=== PATIENT | male | born 1950 | race Caucasian/White ===

== ENCOUNTER 2025-04-08 12:58 | Day surgery (SDC) | payer MEDICARE, OTHER, SELFPAY ==
[2025-04-08] VITALS (8 sets, daily range): BP systolic 104–133; BP diastolic 50–80; PULSE 62–76; RESP 16; TEMP 36.2–36.7; O2SAT 92–98; BMI 24.2
--- NOTE | 2025-04-08 13:17 | PCM.PRE.AN2 ---
ASA Classification* ASA Classification ASA Classification: 2 Assessment & Plan Anesthesia* Anesthesia Assessment Anesthesia Assessment: Discussed sedation and/or anesthesia options, risks, benefits, and alternatives with patient/parents/legal guardian/POA. Questions invited. The patient/parents/legal guardian/POA seems to understand and agrees to proceed with anesthesia plan. Reviewed the physical assessment, medical history, allergy history and patient home medications list prior to surgery/procedure/anesthetic and documented any changes. Performed airway and anesthesia risk assessments. 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 When Was Last Pacemaker Check QUESTION #4 FULL TEXT: You/Your Family Experience fever (hyperthermia) with Anesthesia Last Oral Intake Last Oral intake: Last Oral Intake NPO since Meds taken in AM with sips of water? Meds patient instructed to take am of surgery PONV PONV - electronic publications specialist: PONV - electronic publications specialist Female No 04/04/25 10:15 HX of Motion Sickness No 04/04/25 10:15 HX of N/V After Surgery No 04/04/25 10:15 Non-Smoker Yes 04/04/25 10:15 Duration of Surgery greater No 04/04/25 10:15 than 60 minutes Number of Risk Factors 1 04/04/25 10:15 PONV Score Low Risk 04/04/25 10:15 Respiratory Assessment Respiratory Assessment - electronic publications specialist: Respiratory Tract Infection Hx - electronic publications specialist Hx Respiratory Tract Infection No 04/04/25 10:15 STOP Sleep Apnea STOP Sleep Apnea - electronic publications specialist: STOP Sleep Apnea - electronic publications specialist Hx Hypertension Yes: ON MED 04/04/25 10:15 Hx Sleep Apnea No 04/04/25 10:15 CPAP BIPAP Do you snore loudly (louder No 04/04/25 10:15 than talking or can be heard Do you often feel tired/ No 04/04/25 10:15 fatigued/ sleepy during daytime? Has anyone observed you stop No 04/04/25 10:15 breathing during sleep? STOP Results Negative 04/04/25 10:15 QUESTION #5 FULL TEXT : Do you snore loudly (louder than talking or can be heard through closed doors)? 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 Specify any problems Hx of Preganancy in last 3 N/A 04/04/25 10:15 Months Nurse Filling Out Transfusion JZOLLMARILIA 04/04/25 10:15 & Questions: Date: 04/04/25 04/04/25 10:15 Time: 10:17 04/04/25 10:15 Patient unable to answer at this time (ie. confused, unrespo /Reproduction History /Reproductive History - electronic publications specialist: /Reproductive Hx- electronic publications specialist Hx Now No 04/04/25 10:15 Gestational Age (in weeks): EDC: Hx Hx Para Hx Section SAB No 04/04/25 10:15 PFS Medical History Wears hearing aid Wears glasses Arthritis Prostate disease High cholesterol Former smoker History of stress test Home Medications ?Medication ?Instructions ?Recorded ?Last Taken ?Type amlodipine 5 mg-benazepril 20 mg 1 cap PO QDAY 01/21/25 Unknown History capsule aspirin 81 mg tablet,delayed 81 mg PO QDAY 01/21/25 Unknown History release chlorthalidone 25 mg tablet 25 mg PO QDAY 01/21/25 Unknown History potassium citrate 15 mEq (1,620 15 meq PO BID 01/21/25 Unknown History mg) tablet,extended release rosuvastatin 20 mg tablet 20 mg PO QDAY 01/21/25 Unknown History fluticasone propionate 50 1 spray intranasal DAILY PRN 04/04/25 Unknown History mcg/actuation nasal allergy symptoms spray,suspension (24 Hour Allergy Relief) meloxicam 7.5 mg tablet 7.5 mg PO .QD 04/04/25 Unknown History omega 1-jwx-orb-fish oil 1,200 mg 1 cap PO .QD 04/04/25 Unknown History (144 mg-216 mg) capsule (Fish Oil) Allergy/AdvReac Type Severity Reaction Status Date / Time No Known Allergies Allergy Verified 04/04/25 10:03 Family History Father Myocardial infarction Mother Colon cancer Grandfather Hypertension Surgical History H/O vasectomy H/O lithotripsy H/O Spinal surgery Social History Smoking Status: Never smoker alcohol intake: current frequency: 3-4 times per week Review of Systems (Anesthesia) ROS Narrative System reviewed and no additional complaints, except as documented.
[2025-04-08] MEDS: Lactated Ringers 1,000 ML 15 ML IV (13:38)
--- NOTE | 2025-04-08 13:55 | COLBX_PTH ---
PATIENT: JIAN LIU Jr. LOC: EN U#:[id number] AGE/SX: 74/M ROOM: RE04/08/[address]: Dr. Maximo Fam DO : 1950 BED: DIS: 04/08/2025 SPEC #: [id number] RECD: 04/08/25 18:24 STATUS: GLO REMY #: [id number] RACHEL: 04/08/25 13:[address]: Maximo Fam DEPT: SURGICAL PATHOLOGY RECD BY: Miah Hernandez ENTERED: 04/09/25 08:50 SP TYPE: COLON BX OTHR DR: GRACIELA Hutchins Tissues: A - Rectum, NOS Procedures: Surgery Specimen Level IV HEADER OPERATION: Colonoscopy with polypectomy PRE-OP DIAGNOSIS: Screening colonoscopy TISSUE SUBMITTED: A- Rectal polyp MICROSCOPIC DIAGNOSIS A. Rectum, polyp, biopsy: * Tubular adenoma MICROSCOPIC DESCRIPTION Slides are reviewed. GROSS DESCRIPTION A. Received in formalin labeled with the patient's name and date of . Designated as rectal polyp is a 0.4 cm hicks tissue fragment. Entirely submitted [address] [facility] 04/09/2025 CPT:52182
--- NOTE | 2025-04-08 15:16 | PCM.HP.STD ---
HPI - General General Date of Admission: 04/08/25 Date of Service: 04/08/25 Chief Complaint: Screening colonoscopy HPI Narrative JIAN LIU, is a 74 M who presents to the office today for establishment with [facility] [place] for colon cancer screening closer to home. He reports that his mother and maternal aunt from complications of colon cancer. He reports that his son has been diagnosed with Crohn's disease, but no other autoimmune diseases are in his direct family. He has undergone colon cancer screening colonoscopies every three years with the last on performed in February of 2022. He reports tolerating anesthesia well. Has a history of laminectomy with spinal fusions at several lumbar levels and has has had lithotripsy. He reports that the daily aspirin 81mg he takes is of his own volition. He denies any known medication allergies and food sensitivities. He reports daily BM with complete evacuation. He denies difficulty chewing and swallowing, cough, throat clearing, nausea, vomiting, heartburn, reflux, abdominal bloating, cramping, diarrhea, constipation, hematochezia, and melena. [facility] Medical History Wears hearing aid Wears glasses Arthritis Prostate disease High cholesterol Former smoker History of stress test Home Medications ?Medication ?Instructions ?Recorded ?Last Taken ?Type amlodipine 5 mg-benazepril 20 mg 1 cap PO QDAY 01/21/25 04/08/25 08:30 History capsule aspirin 81 mg tablet,delayed 81 mg PO QDAY 01/21/25 04/01/25 History release chlorthalidone 25 mg tablet 25 mg PO QDAY 01/21/25 04/08/25 08:30 History potassium citrate 15 mEq (1,620 15 meq PO BID 01/21/25 04/08/25 08:30 History mg) tablet,extended release rosuvastatin 20 mg tablet 20 mg PO QDAY 01/21/25 04/08/25 08:30 History fluticasone propionate 50 1 spray intranasal DAILY PRN 04/04/25 Unknown History mcg/actuation nasal allergy symptoms spray,suspension (24 Hour Allergy Relief) meloxicam 7.5 mg tablet 7.5 mg PO .QD 04/04/25 Unknown History omega 1-vtr-xeh-fish oil 1,200 mg 1 cap PO .QD 04/04/25 04/01/25 History (144 mg-216 mg) capsule (Fish Oil) Allergy/AdvReac Type Severity Reaction Status Date / Time No Known Allergies Allergy Verified 04/08/25 13:33 Family History Father Myocardial infarction Mother Colon cancer Grandfather Hypertension Surgical History H/O vasectomy H/O lithotripsy H/O Spinal surgery Social History Smoking Status: Never smoker alcohol intake: current frequency: 3-4 times per week ROS Constitutional Constitutional: Denies fatigue, fever(s), poor appetite, weight gain or weight loss Gastrointestinal Gastrointestinal: Denies belching, bloating, change in bowel habits, change in stool character, chewing difficulty, coffee ground emesis, constipation, cramping, diarrhea, dyspepsia, dysphagia, early satiety, excessive flatus, fecal incontinence, heartburn, hematemesis, hematochezia, hemorrhoids, loose stools, melena, nausea, odynophagia, rectal bleeding, tenesmus, vomiting or weight changes Vital Signs Vital Signs Vital Signs: 04/08/25 13:35 04/08/25 13:35 Temperature 98.0 F Temperature Source Temporal Pulse Rate 76 Respiratory Rate 16 Respiratory Pattern Normal Blood Pressure 133/74 H Blood Pressure Mean 93 Blood Pressure Source Monitor Blood Pressure Position Sitting Blood Pressure Location Right Arm Pulse Ox 98 Oxygen Delivery Method Room Air Weight Weight: 159 lb 6.307 oz Body Mass Index (BMI) 24.2 Physical Exam Const alert, oriented x3, no apparent distress and healthy appearing General Appearance: cooperative GI normal to inspection, nondistended, normoactive bowel sounds, soft to palpation, non-tender and non-distended Percussion: normal to percussion Rectal Exam: deferred Assessment & Plan Assessment/Plan (1) Encounter for screening colonoscopy: PLAN: Assessment and Plan Assessment and Plan (1) Encounter for screening colonoscopy: Status: Acute Plan ANN MARIE LIU, is a 74 M who presents to the office today for establishment with [facility] [place] for colon cancer screening closer to home. Discussed care plan with him. Reviewed his family and medical history. 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
--- NOTE | 2025-04-08 15:58 | OP.COLON_ITS ---
Patient Name: Jai Velazco Procedure Date: 04/08/2025 3:20 PM Date of : 1950 Age: 74 Procedure: Colonoscopy Indications: Screening for colorectal malignant neoplasm Providers: Maximo Fam DO Referring MD: Pola Hutchins Medicines: Monitored Anesthesia Care Patient Profile: This is a 74 year old male. Refer to note in patient chart for documentation of history and physical. Last Colonoscopy: 5 years ago. Complications: No immediate complications. Procedure: Pre-Anesthesia Assessment: - Prior to the procedure, a History and Physical was performed, and patient medications and allergies were reviewed. The patient is competent. The risks and benefits of the procedure and the sedation options and risks were discussed with the patient. All questions were answered and informed consent was obtained. Patient identification and proposed procedure were verified by the physician in the pre-procedure area. Mental Status Examination: alert and oriented. Airway Examination: normal oropharyngeal airway and neck mobility. Respiratory Examination: clear to auscultation. CV Examination: normal. Prophylactic Antibiotics: The patient does not require prophylactic antibiotics. Prior Anticoagulants: The patient has taken no anticoagulant or antiplatelet agents. ASA Grade Assessment: II - A patient with mild systemic disease. After reviewing the risks and benefits, the patient was deemed in satisfactory condition to undergo the procedure. The anesthesia plan was to use monitored anesthesia care (MAC). Immediately prior to administration of medications, the patient was re-assessed for adequacy to receive sedatives. The heart rate, respiratory rate, oxygen saturations, blood pressure, adequacy of pulmonary ventilation, and response to care were monitored throughout the procedure. The physical status of the patient was re-assessed after the procedure. After I obtained informed consent, the scope was passed under direct vision. Throughout the procedure, the patient's blood pressure, pulse, and oxygen saturations were monitored continuously. The Colonoscope was introduced through the anus and advanced to the cecum, identified by the appendiceal orifice, IC valve and transillumination. The colonoscopy was performed without difficulty. The patient tolerated the procedure well. The quality of the bowel preparation was adequate. The ileocecal valve, appendiceal orifice, and rectum were photographed. Scope In: 3:42:35 PM Scope Withdrawal Time 0 hours 7 minutes 35 seconds Scope Out: 3:51:25 PM Total Procedure Duration Time 0 hours 8 minutes 50 seconds Findings: The perianal and digital rectal examinations were normal. Multiple small and large-mouthed diverticula were found in the entire colon. An 8 mm polyp was found in the rectum. The polyp was sessile. The polyp was removed with a jumbo cold forceps. Resection and retrieval were complete. Verification of patient identification for the specimen was done. Estimated blood loss was minimal. The exam was otherwise without abnormality on direct and retroflexion views. Impression: - Diverticulosis in the entire examined colon. - One 8 mm polyp in the rectum, removed with a jumbo cold forceps. Resected and retrieved. - The examination was otherwise normal on direct and retroflexion views. Recommendation: - Discharge patient to home. - Resume previous diet. - Continue present medications. - Await pathology results. - Repeat colonoscopy in 5 years for surveillance. Procedure Code(s): --- Professional --- 19716, Colonoscopy, flexible; with biopsy, single or multiple CPT copyright 2021 [employer]. All rights reserved. The codes documented in this report are preliminary and upon finisher denture review may be revised to meet current compliance requirements. Maximo Fam DO 04/08/2025 3:58:32 PM This report has been signed electronically. Number of Addenda: 0 Note Initiated On: 04/08/2025 3:20 PM
--- NOTE | 2025-04-08 15:59 | OP.CCLET_ITS ---
04/08/2025 Pola Hutchins Re : Colonoscopy procedure for Jai Velazco Dear Viki This procedure was performed on Tuesday, April 08, 2025. My impressions and recommendations are as follows: Impressions : - Diverticulosis in the entire examined colon. - One 8 mm polyp in the rectum, removed with a jumbo cold forceps. Resected and retrieved. - The examination was otherwise normal on direct and retroflexion views. Recommendations : - Discharge patient to home. - Resume previous diet. - Continue present medications. - Await pathology results. - Repeat colonoscopy in 5 years for surveillance. My findings are described in the full procedure note, which is enclosed. If I can be of further assistance, please feel free to contact me at . Sincerely, Maximo Friend, 04/08/2025 3:58:32 PM This report has been signed electronically.
--- NOTE | 2025-04-08 16:15 | PCM.POST.ANE ---
Anesthesia: Postop Eval I Current Vital Signs Temperature: 97.7 F Pulse Rate: 66 Blood Pressure: 122/50 Respiratory Rate: 16 Pulse Ox: 95 Assessment Airway patent: Yes Spontaneous unlabored respirations: Yes Mental status: Awake nausea: No Vomiting: No Anesthesia Complication: No Fluid Hydration Crystalloid volume administer (ml): 50 Total IV fluid infused: 50 Progress Note Anesthesia document: Postop Eval 1 completed: Yes
--- NOTE | 2025-04-08 16:19 | PCM.POSTANE2 ---
Anesthesia Postop Eval I Sum Postop Eval Completion status Anesthesia document: Postop Eval 1 completed: Yes Anesthesia Postop Eval I Summary Anesthesia Postop Eval I Summary: Anesthesia Postop Eval I: Assessment Summary Airway patent Yes 04/08/25 16:19 Spontaneous unlabored Yes 04/08/25 16:19 respirations Mental status Awake 04/08/25 16:19 nausea No 04/08/25 16:19 Vomiting No 04/08/25 16:19 Anesthesia Postop Eval I: Fluid Summary Crystalloid volume administer 50 04/08/25 16:19 (ml) Colloids volume administered ( ml) Blood Product volume administered (ml) Total IV fluid infused 50 04/08/25 16:19 Anesthesia Postop Eval I: Summary Notes Anesthesia Complication No 04/08/25 16:19 Anesthesia Complication Comment: Post-operative progress note Anesthesia: Postop Eval II Evaluation Mental status: Awake Pain Level: 0 nausea: No Vomiting: No
== END 2025-04-08 16:38 | disposition home or self-care (01) ==
LOC: EN 13:01 → AC 13:03
PROVIDERS: PCP Physician Assistant; Referring Provider Physician Assistant; Visit Provider Internal Medicine Gastroenterology
PROC: 0DJD8ZZ Inspection of Lower Intestinal Tract, Via Natural or Artificial Opening Endoscopic (ICD-10-PCS; CPT 45378; principal; 2025-04-08 13:50)
DX: Z12.11 Encounter for screening for malignant neoplasm of colon (principal); K57.30 Diverticulosis of large intestine without perforation or abscess without bleeding; E78.00 Pure hypercholesterolemia, unspecified; Z79.82 Long term (current) use of aspirin; Z79.899 Other long term (current) drug therapy; D12.8 Benign neoplasm of rectum
CPT/HCPCS: 45380; 88305

== ENCOUNTER → 2025-05-12 | Outpatient (CLI) | payer MEDICARE, OTHER, SELFPAY ==
--- NOTE | 2025-05-12 17:45 | RAD_ITS ---
PROCEDURE: HIP, UNI W/ PELVIS 2-3 VIEWS 05/12/2025 REASON FOR EXAM: PAIN TECHNIQUE: HIP, UNI W/ PELVIS 2-3 VIEWS COMPARISON: No FINDINGS: Lower lumbar spine scoliosis, degeneration, prior surgery. Intact pelvic ring. Bilateral hip joint space narrowing and osteophyte formation. Scattered arterial calcifications. No acute bone or soft tissue pathology. : RAD/HIP, UNI W/ Pelvis 2-3 Views IMPRESSION: Moderate bilateral hip osteoarthritis. [facility]
--- NOTE | 2025-05-12 17:45 | RAD_ITS ---
PROCEDURE: LUMBAR SPINE 2 OR 3 VIEWS 05/12/2025 REASON FOR EXAM: PAIN TECHNIQUE: LUMBAR SPINE 2 OR 3 VIEWS COMPARISON: No FINDINGS: Mild lumbosacral scoliosis. Status post anterior and posterior fusion, L4-L5. Intact hardware. Severe facet arthritis, L3 through S1. Multilevel moderate disc space narrowing, osteophyte formation. Grade 1 anterolisthesis, L4 on L5. Grade 1 retrolisthesis, L2 on L3. Extensive aortoiliac calcifications. Bilateral nephrolithiasis, kidney stones measuring up to 1.7 cm. No acute bone or soft tissue pathology. RAD/Lumbar Spine 2 or 3 Views IMPRESSION: Lumbar spine scoliosis, degeneration, prior surgery. Reading Location: [facility]-
== END | disposition home or self-care (01) ==
LOC: RAD 17:34
PROVIDERS: PCP Physician Assistant; Referring Provider Anesthesiology Pain Medicine; Visit Provider Anesthesiology Pain Medicine
DX: M96.1 Postlaminectomy syndrome, not elsewhere classified (principal); M25.552 Pain in left hip
CPT/HCPCS: 72100; 73502

== ENCOUNTER → 2025-07-21 | Outpatient (CLI) | payer MEDICARE, OTHER, SELFPAY ==
--- NOTE | 2025-07-21 11:10 | MRI_ITS ---
PROCEDURE: PELVIS W/WO CONTRAST, 07/21/2025 REASON FOR EXAM: ELEVATED PSA LEVEL. PSA 7.5 on unspecified date, per technologist report. TECHNIQUE: Multisequence multiplanar MRI pelvis was performed with and without IV contrast. IV Contrast: 15 mL Clariscan COMPARISON: None FINDINGS: Variable overall mild motion limitation. Some sequences mild/moderately motion degraded. Prostate size: 5.3 x 3.9 x 4.2 cm, estimated volume 45.1 mL. Per the above provided PSA, PSA density is 0.166 ng/mL. Transition zone: PI-RADS 2 findings. Additional lesions as below: *Lesion 1: LEFT anterior transition zone midgland to apex, 1.4 cm (series 12, image 19).. *T2 score: 4 *DWI score: 4 *DCE: N/A. *Overall PI-RADS: PI-RADS 4. *Extracapsular extension:No gross extracapsular extension, however, there is capsular abutment greater than 1 cm which increases the risk of occult early/microscopic extracapsular extension. *Lesion 2: LEFT anterior/posterior transition zone midgland, 0.9 cm (image 14).. *T2 score: 2. *DWI score: 4. *DCE: N/A. *Overall PI-RADS: PI-RADS 3. *Extracapsular extension:No gross extracapsular extension. Peripheral Zone: Background changes of likely prostatitis (PI-RADS 2). Likely partially extruded transition zone nodule in the RIGHT posterior peripheral zone apex. Neurovascular bundles: Unremarkable. Seminal vesicles: Unremarkable. Bladder: Underdistended and suboptimally evaluated. Bladder wall thickening versus underdistention; correlate for chronic bladder outlet obstruction. Lymph nodes: Unremarkable. Bones: No destructive or frankly suspicious bony lesions identified on nondedicated evaluation. Artifact related to lumbar spinal fusion hardware. Other: Trace bilateral hydroceles.. MRI/Pelvis W/WO Contrast IMPRESSION: 1. 1.4 cm PI-RADS 4 lesion in the LEFT anterior transition zone midgland to ape x (lesion 1). 2. 0.9 cm PI-RADS 3 lesion in the LEFT anterior/posterior transition zone midgl and (lesion 2). 3. No gross extracapsular extension, however, there is capsular abutment greate r than 1 cm which increases the risk of occult early/microscopic extracapsular extension 4. no overt pelvic lymphadenopathy. 5. Additional description as above. Reading Location: [id number]
== END | disposition home or self-care (01) ==
LOC: OPMRI 11:03
PROVIDERS: PCP Physician Assistant; Referring Provider Urology; Visit Provider Urology
DX: R97.20 Elevated prostate specific antigen [PSA] (principal)
CPT/HCPCS: 72197; A9575; A4216

== ENCOUNTER → 2025-08-19 | Outpatient (CLI) | payer MEDICARE, OTHER, SELFPAY ==
--- NOTE | 2025-08-19 13:00 | PROSBIL_PTH ---
PATIENT: JIAN LIU Jr. LOC: [facility] U#:[id number] AGE/SX: 75/M ROOM: RE08/19/[address]: Dr. Jay William MD : 1950 BED: DIS: 08/19/2025 SPEC #: [id number] RECD: 08/19/25 15:09 STATUS: GLO REQ #: [id number] RACHEL: 08/19/25 13:[address]: Jay William DEPT: SURGICAL PATHOLOGY RECD BY: Miah Hernandez ENTERED: 08/19/25 15:41 SP TYPE: PROST BX JAZMIN DR: GRACIELA Hutchins Tissues: A - PROSTATE RIGHT B - PROSTATE RIGHT C - PROSTATE RIGHT D - PROSTATE LEFT E - PROSTATE LEFT F - PROSTATE LEFT Procedures: PROSTATE BX HEADER OPERATION: Prostate biopsy PRE-OP DIAGNOSIS: Elevated PSA TISSUE SUBMITTED: A - Right apex, B - Right mid, C - Right base, D - Left apex, E - Left mid, F - Left base MICROSCOPIC DIAGNOSIS A. Prostate, right, apex, biopsy: * Benign prostatic tissue B. Prostate, right, mid, biopsy: * Benign prostatic tissue C. Prostate, right, base, biopsy: * Benign prostatic tissue D. 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 Prostate, left, mid, biopsy: * Benign prostatic tissue F. Prostate, left, base, biopsy: * Benign prostatic tissue MICROSCOPIC DESCRIPTION Slides are reviewed. GROSS DESCRIPTION Received in 6 formalin containers labeled with the patient's name and date of . Designated as: A. RA is a hicks tissue core, 1.1 cm in length by 0.1 cm in diameter. Entirely submitted in 1 cassette. B. RM is a hicks tissue core, 1.1 cm in length by 0.1 cm in diameter. Entirely submitted in 1 cassette. C. RB is a hicks tissue core, 1.0 cm in length by 0.1 cm in diameter. Entirely submitted in 1 cassette. D. LA are 2 hicks tissue cores, 1.2 cm and 2.0 cm in length by 0.1 cm in diameter. Entirely submitted in 1 cassette. E. LM are 2 hicks tissue cores, 1.2 cm and 1.9 cm in length by 0.1 cm in diameter. Entirely submitted in 1 cassette. F. LB are 2 hicks tissue cores, 1.6 cm and 1.8 cm in length by 0.1 cm in diameter. Entirely submitted in 1 cassette. MA 5CPT:[id number]
--- NOTE | 2025-08-19 13:00 | PROSBIL_PTH ---
PATIENT: JIAN LIU Jr. LOC: [facility] U#:[id number] AGE/SX: 75/M ROOM: RE08/19/[address]: Dr. Jay William MD : 1950 BED: DIS: 08/19/2025 SPEC #: [id number] RECD: 08/19/25 15:09 STATUS: GLO REQ #: [id number] RACHEL: 08/19/25 13:[address]: Jay William DEPT: SURGICAL PATHOLOGY RECD BY: Miah Hernandez ENTERED: 08/19/25 15:41 SP TYPE: PROST BX JAZMIN DR: GRACIELA Hutchins Tissues: A - PROSTATE RIGHT B - PROSTATE RIGHT C - PROSTATE RIGHT D - PROSTATE LEFT E - PROSTATE LEFT F - PROSTATE LEFT Procedures: PROSTATE BX HEADER OPERATION: Prostate biopsy PRE-OP DIAGNOSIS: Elevated PSA TISSUE SUBMITTED: A - Right apex, B - Right mid, C - Right base, D - Left apex, E - Left mid, F - Left base MICROSCOPIC DIAGNOSIS A. Prostate, right, apex, biopsy: * Benign prostatic tissue B. Prostate, right, mid, biopsy: * Benign prostatic tissue C. Prostate, right, base, biopsy: * Benign prostatic tissue D. 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 Prostate, left, mid, biopsy: * Benign prostatic tissue F. Prostate, left, base, biopsy: * Benign prostatic tissue MICROSCOPIC DESCRIPTION Slides are reviewed. GROSS DESCRIPTION Received in 6 formalin containers labeled with the patient's name and date of . Designated as: A. RA is a hicks tissue core, 1.1 cm in length by 0.1 cm in diameter. Entirely submitted in 1 cassette. B. RM is a hicks tissue core, 1.1 cm in length by 0.1 cm in diameter. Entirely submitted in 1 cassette. C. RB is a hicks tissue core, 1.0 cm in length by 0.1 cm in diameter. Entirely submitted in 1 cassette. D. LA are 2 hicks tissue cores, 1.2 cm and 2.0 cm in length by 0.1 cm in diameter. Entirely submitted in 1 cassette. E. LM are 2 hicks tissue cores, 1.2 cm and 1.9 cm in length by 0.1 cm in diameter. Entirely submitted in 1 cassette. F. LB are 2 hicks tissue cores, 1.6 cm and 1.8 cm in length by 0.1 cm in diameter. Entirely submitted in 1 cassette. [place] [id number]
== END | disposition home or self-care (01) ==
PROVIDERS: PCP Physician Assistant; Referring Provider Urology; Visit Provider Urology
DX: R97.20 Elevated prostate specific antigen [PSA] (principal)
CPT/HCPCS: 88305; G0416